=== PATIENT | female | born 1990 | race Asian ===

== ENCOUNTER 2018-01-12 21:36 | Emergency (ER) | payer OTHER ==
[~2018-01-12] VITALS: Ht 165.1 cm; Wt 59.0 kg
[2018-01-12 22:29] VITALS: BP 132/95
== END 2018-01-13 03:53 | disposition home or self-care (01) ==
LOC: ER 21:39
DX: R04.0 Epistaxis (principal)
CPT/HCPCS: 30905; 99284; A4606; Z7610